=== PATIENT | male | born 1955 | race Hispanic/Latino ===

== ENCOUNTER 2019-01-04 11:10 | Observation (INO) | payer MEDICARE ==
[~2019-01-04] VITALS: Ht 180.3 cm; Wt 94.3 kg
--- OUTSIDE RECORDS SUMMARY | 2019-01-04 11:14 | XMS REPORT ---
[facility] Phone Unavailable Care Team Providers Care [employer] Name Role Phone Unavailable Unavailable Problems This patient has no known problems. Allergies, Adverse Reactions, Alerts This patient has no known allergies or adverse reactions. Medications This patient has no known medications. Encounters Start Date/Time End Date/Time Encounter Type Admission Type Attending [facility] [place] Facility Care Department Encounter ID 2018-12-04 00:00:00 2018-12-04 00:00:00 Outpatient [facility] [id number] 2018-10-23 14:55:45 2018-10-23 14:55:45 Outpatient [facility] [id number] 2018-06-14 00:00:00 2018-06-14 00:00:00 Outpatient [facility] [id number] 2018-06-06 00:00:00 2018-06-06 00:00:00 Outpatient [facility] [id number] 2018-06-05 16:33:35 2018-06-05 16:33:35 Outpatient [facility] [id number] 2018-05-30 14:39:59 2018-05-30 14:39:59 Outpatient [facility] [id number] 2018-05-28 08:37:52 2018-05-28 08:37:52 Outpatient [facility] [id number] 2018-05-14 00:00:00 2018-05-14 00:00:00 Outpatient [facility] [id number] 2018-04-25 00:00:00 2018-04-25 00:00:00 Outpatient [facility] [id number] 2018-03-28 09:06:56 2018-03-28 09:06:56 Outpatient [facility] [id number] 2018-03-19 08:33:41 2018-03-19 08:33:41 Outpatient [facility] [id number] 2018-03-08 11:24:10 2018-03-08 11:24:10 Outpatient [facility] [id number] 2018-03-08 10:12:04 2018-03-08 10:12:04 Outpatient [facility] [id number] 2018-02-19 07:57:55 2018-02-19 07:57:55 Outpatient [facility] [id number] 2018-01-08 00:00:00 2018-01-08 00:00:00 Outpatient [facility] [id number] 2017-12-11 10:22:51 2017-12-11 10:22:51 Outpatient [facility] [id number] 2017-12-07 06:55:13 2017-12-07 06:55:13 Outpatient [facility] [id number] 2017-11-27 08:11:25 2017-11-27 08:11:25 Outpatient [facility] [id number] 2017-11-27 00:00:00 2017-11-27 00:00:00 Outpatient [facility] [id number] 2017-10-11 13:24:12 2017-10-11 13:24:12 Outpatient [facility] [id number] 2017-10-10 13:19:15 2017-10-10 13:19:15 Outpatient [facility] [id number] 2017-10-10 00:00:00 2017-10-10 00:00:00 Outpatient [facility] [id number] 2017-10-02 00:00:00 2017-10-02 00:00:00 Outpatient [facility] [id number] 2017-09-19 15:28:37 2017-09-19 15:28:37 Outpatient [facility] [id number] 2017-09-19 00:00:00 2017-09-19 00:00:00 Outpatient [facility] [id number] 2017-08-08 13:04:12 2017-08-08 13:04:12 Outpatient [facility] [id number] 2017-08-07 08:08:20 2017-08-07 08:08:20 Outpatient [facility] [id number] 2017-08-03 09:44:13 2017-08-03 09:44:13 Outpatient [facility] [id number] 2017-08-02 09:37:41 2017-08-02 09:37:41 Outpatient [facility] [id number] 2017-07-31 11:19:26 2017-07-31 11:19:26 Outpatient [facility] [id number] 2017-07-31 10:57:22 2017-07-31 10:57:22 Outpatient [facility] [id number] 2017-07-31 08:37:07 2017-07-31 08:37:07 Outpatient [facility] [id number] 2017-07-13 00:00:00 2017-07-13 00:00:00 Outpatient [facility] [id number] 2017-06-07 00:00:00 2017-06-07 00:00:00 Outpatient [facility] [id number] 2017-05-16 13:59:20 2017-05-16 13:59:20 Outpatient [facility] [id number] 2017-04-27 11:42:19 2017-04-27 11:42:19 Outpatient [facility] [id number] 2017-04-20 13:19:39 2017-04-20 13:19:39 Outpatient [facility] [id number] 2017-04-13 10:07:25 2017-04-13 10:07:25 Outpatient [facility] [id number] 2017-03-27 08:16:12 2017-03-27 08:16:12 Outpatient [facility] [id number] 2017-03-01 00:00:00 2017-03-01 00:00:00 Outpatient [facility] [id number] 2017-01-29 15:01:33 2017-01-29 15:01:33 Outpatient [facility] [id number] 2017-01-24 08:25:18 2017-01-24 08:25:18 Outpatient [facility] [id number] 2017-01-17 09:06:01 2017-01-17 09:06:01 Outpatient [facility] [id number] 2017-01-17 00:00:00 2017-01-17 00:00:00 Outpatient [facility] [id number] 2017-01-04 08:16:02 2017-01-04 08:16:02 Outpatient [facility] [id number] 2016-12-21 00:00:00 2016-12-21 00:00:00 Outpatient [facility] [id number] 2016-12-13 09:42:35 2016-12-13 09:42:35 Outpatient [facility] [id number] 2016-11-21 08:50:26 2016-11-21 08:50:26 Outpatient [facility] [id number]
[2019-01-04] MEDS ORDERED: PEPCID20 MG PO (11:30)
[2019-01-04] MEDS ORDERED: ZOLOFT50 MG PO (11:30)
[2019-01-04] MEDS ORDERED: OMEPRAZOLE20 M1 PO (11:30)
[2019-01-04] MEDS ORDERED: HYDROCHLOROTHIA25 MG PO (11:30)
[2019-01-04] MEDS ORDERED: CLARITIN-D 241 EACH PO (11:30)
--- NOTE | 2019-01-04 13:02 | Diagnostic Imaging Report ---
Frontal and lateral views of the chest. HISTORY: Elevated blood pressure, shortness of breath COMPARISON: None available. DISCUSSION: Lungs: Low lung volumes result in bibasilar vascular crowding, accentuation of the pulmonary interstitial markings, central pulmonary vasculature, and the cardiac silhouette. Allowing for these limitations, the findings are as follows: Mild left basilar atelectasis versus scarring. No evidence of a consolidative pneumonia or pulmonary alveolar edema. Pleura: No pleural effusion or pneumothorax. Heart and mediastinum: The cardiomediastinal silhouette appears unremarkable. Bones and soft tissues: Appear unremarkable. IMPRESSION: Mild left basilar atelectasis versus scarring. Signed by: Dr. Hayes Tao D.O., M.M.M. on 01/04/2019 12:59 PM
[2019-01-04 13:16] LABS: BILIRUBIN,URINE NEGATIVE (NEGATIVE); CLARITY,URINE CLEAR (CLEAR); COLOR,URINE YELLOW (YELLOW); KETONES,URINE NEGATIVE (NEGATIVE); LEUKOCYTE ESTERASE ,URINE NEGATIVE (NEGATIVE); NITRITE,URINE NEGATIVE (NEGATIVE); PROTEIN,URINE DIPSTICK NEGATIVE (NEGATIVE); URINE UROBILINOGEN 0.2 mg/dL (0.2 - 1)
[2019-01-04 13:22] LABS: BASOPHILS % 0.6 % (0.0-1.0); EOSINOPHILS # (AUTO) 0.1 (0.0-0.4); EOSINOPHILS % 1.3 % (0.0-6.0); HEMOGLOBIN 16.4 g/dL (14.0-18.0); LYMPHOCYTES % 29.4 % (18.0-39.1); MEAN CORPUSCULAR HEMOGLOBIN 27.3 pg (28-32); MEAN CORPUSCULAR HGB CONC 33.5 g/dL (31-35); MEAN CORPUSCULAR VOLUME 81.7 fL (81-99); MONOCYTES # (AUTO) 0.6 (0.2-0.8); NEUTROPHILS # (AUTO) 4.1 (2.1-6.9); NEUTROPHILS % 59.4 % (38.7-80.0); PLATELET COUNT 203 x10e3/uL (140-360); RED CELL DISTRIBUTION WIDTH 13.7 % (11.7-14.4)
[2019-01-04 13:37] LABS: BACTERIA,URINE RARE /HPF; EPITHELIAL CELLS,URINE FEW /LPF; RBC,URINE 0-5 /HPF (0-5); WBC,URINE (MAN) 0-5 /HPF (0-5)
[2019-01-04 13:45] LABS: ALANINE AMINOTRANSFERASE 32 IU/L (0-55); ALBUMIN 4.3 g/dL (3.5-5.0); ALKALINE PHOSPHATASE 64 IU/L (40-150); ANION GAP 14.1 mmol/L (8-16); CALCIUM 9.8 mg/dL (8.4-10.2); CARBON DIOXIDE 30 mmol/L (22-29); CHLORIDE 98 mmol/L (98-107); CREATINE KINASE 610 IU/L (30-200); CREATININE, SERUM 1.23 mg/dL (0.72-1.25); EST GLOMERULAR FILTRATION RATE 59 ML/MIN (60-); GLUCOSE 102 mg/dL (74-118); POTASSIUM 4.1 mmol/L (3.5-5.1); SODIUM 138 mmol/L (136-145)
--- NOTE | 2019-01-04 13:48 | Diagnostic Imaging Report ---
CT BRAIN WO HISTORY: Headache COMPARISON: None. TECHNIQUE: Noncontrast axial scans were obtained from skull base to the vertex. Coronal and sagittal reconstructions obtained from the axial data. One or more of the following dose reduction techniques were used: Automated exposure control, adjustment of the mA and/or kV according to patient size, and/or utilization of iterative reconstruction technique. DISCUSSION: Scalp/Skull: Unremarkable. Brain sulci: Appropriate for patient's age. Ventricles: Normal in size and configuration. No hydrocephalus. Extra-axial spaces: No masses or fluid collections. Mild carotid siphon calcification. Parenchyma: Mild periventricular white matter hypodensities are likely chronic microvascular ischemic changes. Otherwise, no mass, hemorrhage, or large vascular territory acute infarct. Dural sinuses: No abnormal densities. Sellar/Suprasellar region: Intact. Skull base: Intact. Incidental findings: None. IMPRESSION: 1. No acute intracranial abnormalities. 2. Mild supratentorial chronic microvascular ischemic change. Signed by: Dr. Elliott Orozco M.D. on 01/04/2019 1:44 PM
[2019-01-04 13:52] LABS: BLOOD UREA NITROGEN 17 mg/dL (7-26)
[2019-01-04 13:53] LABS: BUN/CREATININE RATIO 14 (6-25)
[2019-01-04] MEDS ORDERED: ONDANSETRON HCL INJ 2MG/ML 2ML 2 MG/ML VIAL IV PRN (15:00)
[2019-01-04] MEDS ORDERED: MULTIVITAMINS- 12 INJECTION 10 ML, FOLIC ACID MDV 5 MG, THIAMINE HCL INJ 100 MG in SODI... IV ONE (15:00)
[2019-01-04] MEDS ORDERED: ASPIRIN 325 MG TAB EC PO NR (15:00)
[2019-01-04] MEDS: FAMOTIDINE 20 MG/2 ML VIAL IV SCH (15:49)
--- NOTE | 2019-01-04 16:40 | NUR ---
report received from ER, patient to arrive on stretcher, alert and oriented.
--- NOTE | 2019-01-04 17:09 | NUR ---
patient arrived to unit, alert and oriented via stretcher. daughter at bedside. call tadeo within reach and bed in lowest position.
[2019-01-04 17:24] VITALS: BP 148/76
--- NOTE | 2019-01-04 18:07 | NUR ---
consult was put in for Neurology for forgetfulness. due to the nature of the forgetfulness not being something that is newly onset, the neurologist will evaluate on an outpatient basis. Notified attending physician, order for neurology consult cancelled. Patient was provided neurology office information for outpatient services.
[2019-01-04 18:10] VITALS: BP 148/76
[2019-01-04 18:13] VITALS: BP 148/76
[2019-01-04 19:19] VITALS: BP 148/76
[2019-01-04 20:00] VITALS: BP 121/67
[2019-01-04 21:12] LABS: CREATINE KINASE MB 7.2 ng/mL (0-5.0)
[2019-01-05] VITALS (9 sets, daily range): BP systolic 122–142; BP diastolic 60–76
[2019-01-05 02:56] LABS: BASOPHILS # (AUTO) 0.1 (0.0-0.1); BASOPHILS % 0.7 % (0.0-1.0); EOSINOPHILS # (AUTO) 0.2 (0.0-0.4); HEMATOCRIT 42.6 % (38.2-49.6); HEMOGLOBIN 14.7 g/dL (14.0-18.0); LYMPHOCYTES % 38.6 % (18.0-39.1); MEAN CORPUSCULAR HEMOGLOBIN 27.9 pg (28-32); MEAN CORPUSCULAR HGB CONC 34.5 g/dL (31-35); MEAN CORPUSCULAR VOLUME 80.8 fL (81-99); MONOCYTES # (AUTO) 0.7 (0.2-0.8); MONOCYTES % 8.9 % (4.4-11.3); NEUTROPHILS # (AUTO) 3.8 (2.1-6.9); NEUTROPHILS % 49.4 % (38.7-80.0); PLATELET COUNT 189 x10e3/uL (140-360); RED BLOOD COUNT 5.27 x10e6/uL (4.3-5.7); RED CELL DISTRIBUTION WIDTH 13.8 % (11.7-14.4)
[2019-01-05 03:28] LABS: ALANINE AMINOTRANSFERASE 30 IU/L (0-55); ALBUMIN 3.6 g/dL (3.5-5.0); ALBUMIN/GLOBULIN RATIO 1.1 (0.8-2.0); ALKALINE PHOSPHATASE 43 IU/L (40-150); ANION GAP 12.7 mmol/L (8-16); BLOOD UREA NITROGEN 17 mg/dL (7-26); BUN/CREATININE RATIO 15 (6-25); CALCIUM 9.2 mg/dL (8.4-10.2); CARBON DIOXIDE 28 mmol/L (22-29); CHLORIDE 103 mmol/L (98-107); CHOL/HDL RATIO 5.9 (3.9-4.7); CHOLESTEROL 164 MD/DL (0-199); EST GLOMERULAR FILTRATION RATE > 60 ML/MIN (60-); GLUCOSE 102 mg/dL (74-118); HDL CHOLESTEROL 28 MG/DL (40-60); LDL CHOLESTEROL 94 MG/DL (60-130); MAGNESIUM 2.1 MG/DL (1.3-2.1); PHOSPHORUS 3.4 MG/DL (2.3-4.7); POTASSIUM 3.7 mmol/L (3.5-5.1); SODIUM 140 mmol/L (136-145); TRIGLYCERIDES 209 MG/DL (0-149)
[2019-01-05] MEDS: FAMOTIDINE 20 MG/2 ML VIAL IV SCH (03:58)
[2019-01-05] MEDS ORDERED: POLYETHYLENE GLYCOL 3350 17 GM PACK PO PRN (04:00)
[2019-01-05] MEDS ORDERED: HYDRALAZINE HCL 20 MG/ML VIAL IV PRN (04:00)
[2019-01-05] MEDS ORDERED: ACETAMINOPHEN 325 MG TAB PO PRN (04:00)
[2019-01-05 04:28] LABS: THYROID STIMULATING HORMONE 1.268 uIU/mL (0.350-4.940)
[2019-01-05 07:04] LABS: CREATINE KINASE MB 6.6 ng/mL (0-5.0)
[2019-01-05] MEDS ORDERED: ASPIRIN 81 MG CHEW TAB PO ONE (07:30)
[2019-01-05] MEDS: FAMOTIDINE 20 MG TAB PO SCH (08:10)
[2019-01-05] MEDS: HYDROCHLOROTHIAZIDE 25 MG TAB PO SCH (08:10)
[2019-01-05] MEDS: DOCUSATE SODIUM 100 MG CAP PO SCH ×2 (08:10→16:18)
[2019-01-05] MEDS: LORATADINE/PSEUDOEPHEDRINE 24 HR SR TAB PO SCH (08:10)
[2019-01-05] MEDS: SODIUM CHLORIDE 0.9% 1000ML 1,000 ML IV SCH ×3 (08:10→19:58)
[2019-01-05] MEDS: SERTRALINE HCL 50 MG TAB PO SCH (08:10)
[2019-01-05] MEDS: ASPIRIN 81 MG ENTERIC COATED PO SCH (08:31)
[2019-01-05] MEDS ORDERED: PANTOPRAZOLE SOD 40 MG TABEC PO SCH (09:00)
--- NOTE | 2019-01-05 09:16 | NUR ---
per [employer] PROFESSOR okay to remove telemetry for MRI procedure and will place patient back on monitor upon return
--- NOTE | 2019-01-05 10:35 | NUR ---
patient leaving unit via wheelchair to MRI, alert and oriented.
--- NOTE | 2019-01-05 11:17 | NUR ---
patient arrived back to unit via wheelchair, alert and oriented. back in bed, call tadeo within reach and bed in lowest position. Telemetry back in place.
--- NOTE | 2019-01-05 12:50 | Diagnostic Imaging Report ---
MRI BRAIN WO HISTORY: Headache, weakness COMPARISON: Head CT 01/04/2019 TECHNIQUE: Sagittal T2, axial T2, axial T1, axial T2/FLAIR, axial gradient echo (or susceptibility weighted), coronal T2/FLAIR, and axial diffusion weighted MR images of the brain were obtained without contrast. Motion artifacts obscure some details. DISCUSSION: Scalp/bone marrow: Unremarkable. Brain sulci: Appropriate for patient's age. Ventricles: Normal in size and configuration. No hydrocephalus. Extra-axial spaces: No masses or fluid collections. Parenchyma: Scattered T2/FLAIR hyperintense foci throughout the supratentorial white matter are likely chronic microvascular ischemic changes. Otherwise, no mass, hemorrhage, or acute vascular insults. Vessels: Normal flow voids in major arteries and veins. Sellar/Suprasellar region: No abnormalities. Craniocervical junction: No abnormalities. Incidental findings: Minimal scattered paranasal sinus mucosal thickening. IMPRESSION: 1. No acute intracranial abnormalities. 2. Mild supratentorial chronic microvascular ischemic change. Signed by: Dr. Elliott Orozco M.D. on 01/05/2019 11:27 AM
[2019-01-06 02:49] LABS: BASOPHILS % 0.6 % (0.0-1.0); EOSINOPHILS # (AUTO) 0.1 (0.0-0.4); HEMATOCRIT 43.4 % (38.2-49.6); HEMOGLOBIN 14.7 g/dL (14.0-18.0); LYMPHOCYTES # (AUTO) 2.6 (1.0-3.2); LYMPHOCYTES % 36.6 % (18.0-39.1); MEAN CORPUSCULAR HEMOGLOBIN 27.5 pg (28-32); MEAN CORPUSCULAR HGB CONC 33.9 g/dL (31-35); MEAN CORPUSCULAR VOLUME 81.1 fL (81-99); MONOCYTES # (AUTO) 0.6 (0.2-0.8); MONOCYTES % 8.7 % (4.4-11.3); NEUTROPHILS # (AUTO) 3.7 (2.1-6.9); NEUTROPHILS % 51.8 % (38.7-80.0); PLATELET COUNT 195 x10e3/uL (140-360); RED BLOOD COUNT 5.35 x10e6/uL (4.3-5.7); RED CELL DISTRIBUTION WIDTH 13.7 % (11.7-14.4)
[2019-01-06 03:20] LABS: ANION GAP 11.8 mmol/L (8-16); BLOOD UREA NITROGEN 14 mg/dL (7-26); BUN/CREATININE RATIO 13 (6-25); CARBON DIOXIDE 26 mmol/L (22-29); CHLORIDE 104 mmol/L (98-107); CREATINE KINASE 491 IU/L (30-200); CREATININE, SERUM 1.07 mg/dL (0.72-1.25); EST GLOMERULAR FILTRATION RATE > 60 ML/MIN (60-); GLUCOSE 98 mg/dL (74-118); POTASSIUM 3.8 mmol/L (3.5-5.1); SODIUM 138 mmol/L (136-145)
[2019-01-06 04:17] VITALS: BP 132/67
[2019-01-06] MEDS ORDERED: ASPIRIN EC81 MG PO (04:36)
[2019-01-06] MEDS ORDERED: LIPITOR20 MG PO (04:36)
[2019-01-06 07:44] VITALS: BP 128/61
[2019-01-06 08:22] VITALS: BP 128/61
--- NOTE | 2019-01-06 08:26 | NUR ---
patient up in bed, Alert with no distress, call light in reach, he ate breakfast
[2019-01-06] MEDS: LORATADINE/PSEUDOEPHEDRINE 24 HR SR TAB PO SCH (08:29)
[2019-01-06] MEDS: ASPIRIN 81 MG ENTERIC COATED PO SCH (08:29)
[2019-01-06] MEDS: SERTRALINE HCL 50 MG TAB PO SCH (08:29)
[2019-01-06] MEDS: FAMOTIDINE 20 MG TAB PO SCH (08:29)
[2019-01-06] MEDS: DOCUSATE SODIUM 100 MG CAP PO SCH (08:29)
[2019-01-06] MEDS: HYDROCHLOROTHIAZIDE 25 MG TAB PO SCH (08:29)
[2019-01-06 11:31] VITALS: BP 127/69
[2019-01-06] MEDS ORDERED: ONDANSETRON HCL 4 MG ORAL DISINTEGRATING TAB PO PRN (11:45)
--- NOTE | 2019-01-06 13:38 | NUR ---
Carotid doppler result notified Paradise ADORNO, New order recvd to discharge patient
--- NOTE | 2019-01-06 14:25 | NUR ---
Patient discharged Home, Alert with no distress, denies any chest pain or SOB , Prescription given and patient verbalized understanding about medications, he aware about f/up appointments, discharge instructions given, IV canula removed with tip intact no ss of infiltration. His grandson here to pick patient, walked with him to front lobby, he refused wheelchair
--- NOTE | 2019-01-06 18:41 | Discharge Summary ---
ADMISSION DIAGNOSES: Headache with weakness, rule out CVA, hypertension, rhabdo, depression, GERD. DISCHARGE DIAGNOSES: Headache with weakness, rule out CVA, hypertension, rhabdo, depression, GERD, rule out cerebrovascular accident. HISTORY: The patient has a history of hypertension, GERD, and depression. PAST SURGICAL HISTORY: Cholecystectomy. SOCIAL HISTORY: Noncontributory. The patient admits to occasional alcohol and tobacco use. HOSPITAL COURSE: A 63-year-old male complains of intermittent temporal headache that began 2 weeks ago. He also noted his systolic blood pressure was up to 185. He works at [email or web address]. He denies focal weakness, syncope, nausea, vomiting, visual disturbances, and dysphagia. His headache improved with Tylenol and nothing worsens the symptoms. On admission, EKG showed normal sinus rhythm. Chest x-ray showed left basilar atelectasis versus scarring. CT of the brain was negative. MRI of the brain was negative. CK trended down from 543 to 491. Echo showed an EF of 55%. Carotid Doppler was also negative. The patient was discharged home and follow up with primary care in 1 to 2 weeks. He was given a prescription for aspirin and Lipitor. The patient understands discharge instructions and agrees to plan. Vital signs are stable. The patient is afebrile. Dictated by Paradise Paige NP MD [facility] /[id number]
== END 2019-01-06 14:14 | disposition home or self-care (01) ==
LOC: ER 11:10 → ERHOLD 15:08 → IMCU 17:19
PROVIDERS: ADMIT Internal Medicine; ATTEND Internal Medicine
DX: R51 Headache (principal); I10 Essential (primary) hypertension; K21.9 Gastro-esophageal reflux disease without esophagitis; F32.9 Major depressive disorder, single episode, unspecified; F17.210 Nicotine dependence, cigarettes, uncomplicated; Z82.49 Family history of ischemic heart disease and other diseases of the circulatory system; M62.82 Rhabdomyolysis
CPT/HCPCS: 36415 ×3; 70450; 70551; 71046; 80048; 80053 ×2; 80061; 80320; 81001; 82140; 82550 ×3; 82553 ×3; 83735; 83880; 84100; 84443; 84484 ×3; 85025 ×3; 87086; 93005; 93306; 93880; 96360; 96361; 97139; 97161; 99284; G0378 ×3; J3411; J7030 ×2

== ENCOUNTER 2019-01-10 15:45 | Emergency (ER) | payer MEDICARE ==
[~2019-01-10] VITALS: Ht 180.3 cm; Wt 94.3 kg
[~2019-01-10 15:45] MED LIST: ASPIRIN EC81 MG PO; CLARITIN-D 241 EACH PO; HYDROCHLOROTHIA25 MG PO; LIPITOR20 MG PO; OMEPRAZOLE20 M1 PO; PEPCID20 MG PO; ZOLOFT50 MG PO
[2019-01-10] MEDS: LOSARTAN POTASSIUM 100 MG TAB PO NR (17:46)
[2019-01-10 18:08] LABS: BASOPHILS % 0.6 % (0.0-1.0); EOSINOPHILS # (AUTO) 0.1 (0.0-0.4); EOSINOPHILS % 1.8 % (0.0-6.0); HEMATOCRIT 44.9 % (38.2-49.6); HEMOGLOBIN 15.4 g/dL (14.0-18.0); LYMPHOCYTES # (AUTO) 2.2 (1.0-3.2); LYMPHOCYTES % 32.6 % (18.0-39.1); MEAN CORPUSCULAR HGB CONC 34.3 g/dL (31-35); MEAN CORPUSCULAR VOLUME 81.6 fL (81-99); MONOCYTES # (AUTO) 0.7 (0.2-0.8); MONOCYTES % 9.9 % (4.4-11.3); NEUTROPHILS # (AUTO) 3.7 (2.1-6.9); NEUTROPHILS % 54.7 % (38.7-80.0); PLATELET COUNT 189 x10e3/uL (140-360); RED CELL DISTRIBUTION WIDTH 13.4 % (11.7-14.4)
[2019-01-10 18:20] LABS: ALANINE AMINOTRANSFERASE 29 IU/L (0-55); ALBUMIN 4.1 g/dL (3.5-5.0); ALKALINE PHOSPHATASE 67 IU/L (40-150); ANION GAP 12.8 mmol/L (8-16); BLOOD UREA NITROGEN 14 mg/dL (7-26); BUN/CREATININE RATIO 13 (6-25); CALCIUM 9.5 mg/dL (8.4-10.2); CARBON DIOXIDE 31 mmol/L (22-29); CHLORIDE 96 mmol/L (98-107); CREATININE, SERUM 1.04 mg/dL (0.72-1.25); EST GLOMERULAR FILTRATION RATE > 60 ML/MIN (60-); GLUCOSE 97 mg/dL (74-118); POTASSIUM 3.8 mmol/L (3.5-5.1); SODIUM 136 mmol/L (136-145)
[2019-01-10 19:55] VITALS: BP 151/88
== END 2019-01-10 19:59 | disposition home or self-care (01) ==
LOC: ER 15:45
DX: I10 Essential (primary) hypertension (principal); K21.9 Gastro-esophageal reflux disease without esophagitis; E78.5 Hyperlipidemia, unspecified; E11.9 Type 2 diabetes mellitus without complications; F32.9 Major depressive disorder, single episode, unspecified; Z87.891 Personal history of nicotine dependence; Z79.82 Long term (current) use of aspirin
CPT/HCPCS: 36415; 80053; 84484; 85025; 93005; 99283

== ENCOUNTER → 2019-06-04 | Outpatient (CLI) | payer MEDICARE ==
--- NOTE | 2019-06-04 13:21 | Diagnostic Imaging Report ---
EXAM: KNEE LEFT THREE VIEWS DATE: 06/04/2019 10:59 AM INDICATION: Left knee pain COMPARISON: None FINDINGS: There is no evidence for acute fracture or dislocation. Bony mineralization is within normal limits. No focal lytic or blastic abnormality is identified. There is mild femorotibial joint space narrowing, more prominent within the medial compartment. The patellofemoral joint space is relatively well-preserved. The soft tissues are unremarkable without evidence for radiopaque foreign body. IMPRESSION: No acute radiographic abnormality identified within the left knee. Signed by: Dr. Jamal Story MD on 06/04/2019 1:17 PM
== END ==
LOC: RAD 10:51
PROVIDERS: ATTEND Family Medicine
DX: M25.562 Pain in left knee (principal)

== ENCOUNTER 2021-08-12 17:41 | Emergency (ER) | payer MEDICARE ==
[~2021-08-12] VITALS: Ht 180.3 cm; Wt 94.3 kg
== END 2021-08-12 18:35 | disposition home or self-care (01) ==
LOC: ER 17:44
DX: R42 Dizziness and giddiness (principal); I95.1 Orthostatic hypotension; I10 Essential (primary) hypertension; E78.5 Hyperlipidemia, unspecified; K21.9 Gastro-esophageal reflux disease without esophagitis; F32.A Depression, unspecified
CPT/HCPCS: 99282

== ENCOUNTER 2021-08-13 19:25 | Emergency (ER) | payer MEDICARE ==
[~2021-08-13] VITALS: Ht 180.3 cm; Wt 99.8 kg
== END 2021-08-13 19:55 | disposition home or self-care (01) ==
LOC: ER 19:35
DX: I10 Essential (primary) hypertension (principal); E78.5 Hyperlipidemia, unspecified; K21.9 Gastro-esophageal reflux disease without esophagitis; F32.A Depression, unspecified
CPT/HCPCS: 99282

== ENCOUNTER 2021-09-21 09:53 | Emergency (ER) | payer MEDICARE ==
[~2021-09-21] VITALS: Ht 180.3 cm; Wt 99.8 kg
[2021-09-21] MEDS ORDERED: MECLIZINE HCL 12.5 MG TAB PO ONE (10:15)
[2021-09-21 10:18] LABS: BASOPHILS % 0.5 % (0.0-1.0); EOSINOPHILS # (AUTO) 0.1 (0.0-0.4); EOSINOPHILS % 1.8 % (0.0-6.0); HEMATOCRIT 41.4 % (38.2-49.6); HEMOGLOBIN 14.1 g/dL (14.0-18.0); LYMPHOCYTES # (AUTO) 3.9 (1.0-3.2); LYMPHOCYTES % 49.6 % (18.0-39.1); MEAN CORPUSCULAR HEMOGLOBIN 27.8 pg (28-32); MEAN CORPUSCULAR HGB CONC 34.1 g/dL (31-35); MEAN CORPUSCULAR VOLUME 81.5 fL (81-99); MONOCYTES # (AUTO) 0.8 (0.2-0.8); MONOCYTES % 9.6 % (4.4-11.3); NEUTROPHILS % 38.2 % (38.7-80.0); PLATELET COUNT 197 x10e3/uL (140-360); RED BLOOD COUNT 5.08 x10e6/uL (4.3-5.7); RED CELL DISTRIBUTION WIDTH 13.8 % (11.7-14.4)
[2021-09-21] MEDS: SODIUM CHLORIDE 0.9% 1000ML 1,000 ML IV SCH ×2 (10:27→11:01)
[2021-09-21 10:44] LABS: ALBUMIN 3.6 g/dL (3.5-5.0); ALBUMIN/GLOBULIN RATIO 0.9 (0.8-2.0); ANION GAP 13.2 mmol/L (8-16); CALCIUM 8.9 mg/dL (8.4-10.2); CREATININE, SERUM 1.27 mg/dL (0.72-1.25); POTASSIUM 3.2 mmol/L (3.5-5.1)
[2021-09-21 12:30] LABS: BACTERIA,URINE FEW /HPF; CLARITY,URINE CLEAR (CLEAR); COLOR,URINE YELLOW (YELLOW); KETONES,URINE NEGATIVE (NEGATIVE); LEUKOCYTE ESTERASE ,URINE NEGATIVE (NEGATIVE); NITRITE,URINE NEGATIVE (NEGATIVE); PROTEIN,URINE DIPSTICK NEGATIVE (NEGATIVE); URINE UROBILINOGEN 0.2 mg/dL (0.2 - 1)
[2021-09-21 12:31] LABS: EPITHELIAL CELLS,URINE MODERATE /LPF
[2021-09-21] MEDS ORDERED: MECLIZINE HCL12.5 MG PO (12:51)
[2021-09-21 13:18] VITALS: BP 114/65
== END 2021-09-21 13:19 | disposition home or self-care (01) ==
LOC: ER 10:43
DX: R42 Dizziness and giddiness (principal); I10 Essential (primary) hypertension; E78.5 Hyperlipidemia, unspecified; F32.A Depression, unspecified; K21.9 Gastro-esophageal reflux disease without esophagitis; Z20.822 Contact with and (suspected) exposure to COVID-19; Z79.82 Long term (current) use of aspirin; Z79.899 Other long term (current) drug therapy
CPT/HCPCS: 36415; 70450; 71045; 80053; 81001; 84484; 85025; 93005; 99284; J7030; J8597; U0002

== ENCOUNTER 2022-07-20 12:44 | Emergency (ER) | payer MEDICARE ==
[~2022-07-20] VITALS: Ht 180.3 cm; Wt 99.8 kg
[~2022-07-20 12:44] MED LIST changes: +MECLIZINE HCL12.5 MG PO
[2022-07-20] MEDS ORDERED: MECLIZINE HCL 12.5 MG TAB PO ONE (13:30)
[2022-07-20] MEDS ORDERED: MECLIZINE HCL 12.5 MG TAB ONE (13:40)
[2022-07-20 13:48] LABS: BASOPHILS % 0.7 % (0.0-1.0); EOSINOPHILS # (AUTO) 0.1 (0.0-0.4); HEMATOCRIT 46.1 % (38.2-49.6); HEMOGLOBIN 14.7 g/dL (14.0-18.0); LYMPHOCYTES # (AUTO) 1.7 (1.0-3.2); LYMPHOCYTES % 28.3 % (18.0-39.1); MEAN CORPUSCULAR HEMOGLOBIN 27.3 pg (28-32); MEAN CORPUSCULAR HGB CONC 31.9 g/dL (31-35); MEAN CORPUSCULAR VOLUME 85.7 fL (81-99); MONOCYTES # (AUTO) 0.4 (0.2-0.8); MONOCYTES % 7.2 % (4.4-11.3); NEUTROPHILS # (AUTO) 3.7 (2.1-6.9); NEUTROPHILS % 62.5 % (38.7-80.0); PLATELET COUNT 194 x10e3/uL (140-360); RED BLOOD COUNT 5.38 x10e6/uL (4.3-5.7); RED CELL DISTRIBUTION WIDTH 13.2 % (11.7-14.4)
[2022-07-20 14:09] LABS: ALBUMIN 3.9 g/dL (3.5-5.0); ANION GAP 12.8 mmol/L (8-16); CALCIUM 9.2 mg/dL (8.4-10.2); CREATININE, SERUM 1.06 mg/dL (0.72-1.25); POTASSIUM 3.8 mmol/L (3.5-5.1)
[2022-07-20] MEDS ORDERED: SODIUM CHLORIDE 0.9% 100 ML ONE (15:10)
[2022-07-20] MEDS ORDERED: IOPAMIDOL 370 MG/ML 100 ML INFUS..BTL INJ ONE (15:11)
[2022-07-20] MEDS ORDERED: MECLIZINE HCL25 MG PO (16:24)
[2022-07-20 16:44] VITALS: BP 125/88
== END 2022-07-20 16:50 | disposition home or self-care (01) ==
LOC: ER 12:55
DX: R42 Dizziness and giddiness (principal); I10 Essential (primary) hypertension; E78.5 Hyperlipidemia, unspecified; K21.9 Gastro-esophageal reflux disease without esophagitis; F32.A Depression, unspecified
CPT/HCPCS: 36415; 70496; 70498; 71045; 80053; 85025; 93005; 99284; J7050; J8597; Q9967